=== PATIENT | female | born 1995 | race Caucasian/White ===

== ENCOUNTER 2023-01-01 17:46 | Emergency (ER) | payer OTHER ==
[2023-01-01] MEDS ORDERED: Sodium Chloride 0.9% 10 ML Syringe FLUSH PRN (18:09)
== END 2023-01-01 21:18 | disposition home or self-care (01) ==
LOC: JD.ED 17:46
DX: O20.9 Hemorrhage in early pregnancy, unspecified (principal); Z88.0 Allergy status to penicillin; Z3A.08 8 weeks gestation of pregnancy
CPT/HCPCS: 36415; 76817; 84702; 85025; 86900; 86901; 99284; J3490

== ENCOUNTER 2023-09-30 10:06 | Inpatient (IN) | payer OTHER ==
[~2023-09-30 10:06] MED LIST: Bupivacaine 0.25% 10 ML SDV ONE
[2023-09-30] MEDS ORDERED: Sodium Chloride 0.9% 10 ML Syringe FLUSH PRN (11:00)
[2023-09-30] MEDS ORDERED: Nalbuphine HCl 10 MG/ 1ML Amp IVPUSH PRN (11:00)
[2023-09-30] MEDS ORDERED: Lidocaine 1% 50 ML MDV INJECT PRN (11:00)
[2023-09-30] MEDS ORDERED: Ondansetron 4 MG/2 ML SDV IVPUSH PRN (11:00)
[2023-09-30 11:24] LABS: BASOPHILS PERCENT AUTO 0.2 % (0.0-1.0); EOSINOPHILS ABSOLUTE AUTO 0.1 K/mm3 (0.0-0.4); EOSINOPHILS PERCENT AUTO 0.5 % (0.0-6.0); HEMATOCRIT 40.8 % (37.0-47.0); IMMATURE GRAN ABSOLUTE AUTO 0.05 K/mm3 (0.00-0.05); IMMATURE GRAN PERCENT AUTO 0.4 % (0.0-0.4); LYMPHOCYTES ABSOLUTE AUTO 1.8 K/mm3 (1.0-4.8); LYMPHOCYTES PERCENT AUTO 15.2 % (24.0-44.0); MEAN CORPUSCULAR HEMOGLOBIN 30.1 pg (28.0-32.0); MEAN CORPUSCULAR HGB CONC 34.3 g/dl (32.0-36.0); MEAN CORPUSCULAR VOLUME 87.7 fl (83.0-99.0); MEAN PLATELET VOLUME 9.8 fl (9.4-12.3); MONOCYTES ABSOLUTE AUTO 0.7 K/mm3 (0.0-0.8); NEUTROPHILS ABSOLUTE AUTO 9.3 K/mm3 (1.8-7.7); NEUTROPHILS PERCENT AUTO 77.7 % (41.0-71.0); PLATELET COUNT,PLT 246 K/mm3 (150-400); RED BLOOD CELL COUNT 4.65 M/mm3 (4.10-5.30); WHITE BLOOD CELL COUNT,WBC 12.01 K/mm3 (3.9-11.3)
[2023-09-30] MEDS ORDERED: Oxytocin/Lactated Ringers 30 UNIT/500 ML BAG IV SCH (12:45)
[2023-09-30] MEDS: Lactated Ringers 1,000 ML IV SCH ×3 (13:06→19:14)
[2023-09-30] MEDS ORDERED: fentaNYL 100 MCG/2 ML SDV EPIDUR PRN (17:42)
[2023-09-30] MEDS ORDERED: Bupivacaine/fentaNYL/NS 100 ML Bag EPIDUR PRN (17:42)
[2023-09-30] MEDS ORDERED: diphenhydrAMINE 50 MG/ML SDV IVPUSH PRN (17:42)
[2023-09-30] MEDS ORDERED: ePHEDrine 50 MG/ML SDV IVPUSH PRN (17:42)
[2023-09-30] MEDS ORDERED: Calcium Carbonate 500 MG Tab.Chew PO PRN (20:54)
[2023-09-30] MEDS ORDERED: Sodium Chloride 0.9% 10 ML Syringe FLUSH SCH (21:00)
[2023-09-30] MEDS ORDERED: Acetaminophen 325 MG Tab PO PRN (23:52)
[2023-09-30] MEDS ORDERED: Docusate Sodium 100 MG Cap PO PRN (23:52)
[2023-09-30] MEDS ORDERED: Ibuprofen 600 MG Tab PO PRN (23:52)
[2023-09-30] MEDS ORDERED: Witch Hazel Medicated Pads 40/Jar TOP PRN (23:52)
[2023-09-30] MEDS ORDERED: Benzocaine/Menthol 20%-0.5% Spray 78 GM Cannister TOP PRN (23:52)
== END 2023-10-02 09:43 | disposition home or self-care (01) | DRG 807 ==
LOC: JD.OBCHECK 10:06 → JD.OB 12:37
PROVIDERS: ADMIT Obstetrics & Gynecology; ATTEND Obstetrics & Gynecology
PROC: 10E0XZZ Delivery of Products of Conception, External Approach (ICD-10-PCS; principal; 2023-09-30)
PROC: 3E033VJ Introduction of Other Hormone into Peripheral Vein, Percutaneous Approach (ICD-10-PCS; 2023-09-30)
PROC: 3E0R3BZ Introduction of Anesthetic Agent into Spinal Canal, Percutaneous Approach (ICD-10-PCS; 2023-09-30)
PROC: 00HU33Z Insertion of Infusion Device into Spinal Canal, Percutaneous Approach (ICD-10-PCS; 2023-09-30)
DX: O42.02 Full-term premature rupture of membranes, onset of labor within 24 hours of rupture (principal); Z37.0 Single live birth; O24.410 Gestational diabetes mellitus in pregnancy, diet controlled; O70.0 First degree perineal laceration during delivery; Z3A.37 37 weeks gestation of pregnancy
CPT/HCPCS: 36415; 51702; 59025; 59409; 84112; 85025; 86592; A9270-GY; J3490; J7120; J7999